=== PATIENT | female | born 1950 | race Caucasian/White ===

== ENCOUNTER 2023-04-20 12:14 | Emergency (ER) | payer OTHER, SELFPAY ==
[2023-04-20] VITALS (14 sets, daily range): BP systolic 101–144; BP diastolic 55–65; PULSE 63–72; RESP 18–28; O2SAT 95–100; BMI 26.9
--- NOTE | 2023-04-20 12:26 | DI.RAD.S_ITS ---
PROCEDURE: XR CHEST 1V INDICATIONS: syncope TECHNIQUE: One view of the chest was acquired. COMPARISON: None. FINDINGS: Surgical changes and devices: None. Lungs and pleura: Lungs are clear. No pleural effusions or pneumothorax. Mediastinum: Mediastinal contours appear normal. Heart size is normal. Bones and chest wall: No suspicious bony lesions. Overlying soft tissues appear unremarkable. IMPRESSION: No acute cardiopulmonary process. Dictated by: Syd Tello M.D. on 04/20/2023 at 13:28 Approved by: Syd Tello M.D. on 04/20/2023 at 13:28
[2023-04-20 12:45] LABS: Add Manual Diff / Slide Review NO; Basophils Absolute Auto 100 /uL (0-100); Basophils Percent Auto 0.8 % (0-2); Eosinophils Absolute Auto 100 /uL (0-450); Eosinophils Percent Auto 2.2 % (2-4); Hematocrit 43.2 % (36-46); Hemoglobin 14.8 g/dL (12.0-16.0); Lymphocytes Absolute Auto 2300 /uL (1100-4500); Lymphocytes Percent Auto 36.1 % (25-40); Mean Corpuscular HGB Conc 34.3 % (30-36); Mean Corpuscular Hemoglobin 31.2 PG (26-34); Mean Corpuscular Volume 90.8 fL (80-100); Monocytes Absolute Auto 600 /uL (0-900); Monocytes Percent Auto 8.9 % (3-14); Neutrophils Absolute Auto 3400 /uL (1500-7000); Platelet Count 216 X10^3/uL (150-400); Red Blood Cell Count 4.75 X10^6/uL (4.0-5.2); Red Cell Distribution Width 13.2 % (11.6-14.8); White Blood Cell Count 6.5 X10^3/uL (4.5-11.0)
[2023-04-20 12:46] LABS: Lactate (Lactic Acid) 1.2 mmol/L (0.7-2.1)
[2023-04-20 12:47] LABS: Alanine Aminotransferase 17 IU/L (<35); Albumin Globulin Ratio 1.3 (1.0-2.8); Alkaline Phosphatase 95 U/L (38-126); Aspartate Aminotransferase 34 IU/L (14-36); BUN Creatinine Ratio 26.7 (6-22); Blood Urea Nitrogen 20 mg/dL (7-17); Calcium 9.3 mg/dL (8.4-10.2); Carbon Dioxide 25 mmol/L (22-32); Chloride 106 mmol/L (98-107); Creatine Kinase 40 U/L (30-135); Estimated Glomerular Filt Rate > 60 mL/min (>60); Globulin 3.2 g/dL (1.7-4.1); Glucose 103 mg/dL (80-110); HEMOLYSIS 20 (0-50); Lipase 108 U/L (23-300); Potassium 3.9 mmol/L (3.4-5.1); Sodium 139 mmol/L (137-145); Total Protein 7.2 g/dL (6.3-8.2)
[2023-04-20] MEDS: SODIUM CHLORIDE 0.9% 1,000 ML 1000 ML IV (12:56)
[2023-04-20 12:58] LABS: Troponin I < 0.012 ng/mL (0.01-0.034)
[2023-04-20 13:03] LABS: Procalcitonin 0.04 ng/mL (<0.5)
--- NOTE | 2023-04-20 14:43 | ED.SYNCOPE ---
HPI - Syncope General Chief Complaint: Syncope Stated Complaint: syncope Time Seen by Provider: 04/20/23 12:26 Source: patient and EMS Mode of arrival: EMS Limitations: no limitations History of Present Illness HPI narrative: Patient 72-year-old female history of hypothyroid presenting today with a syncopal episode. She reports that she is visiting from [place] she flew 3 days ago. She was sitting out on the front porch with friends in the sunshine eating breakfast. It only been out for about 30 minutes she would felt herself getting warm she went inside to change her pants. She started having some abdominal discomfort some cramping. She felt like she would have a bowel movement which she did and then. She back outside when then she had a brief episode of syncope. Friend reports that it was less than a minute there is no shaking foaming at the mouth rolling of the eyes. She woke up fairly quickly without any significant confusion. She did throw up twice afterwards. No further nausea. EMS reported some slight hypotension which has improved with IV fluids. She reports that she has multiple food sensitivities she tries to be very careful. She denies any fever chills she reports that she was feeling fine yesterday. She is no chest pain palpitations or shortness of breath Related Data Previous Rx's Medication Instructions Recorded ondansetron 4 mg disintegrating 4 mg PO Q8H PRN nausea and 04/20/23 tablet vomiting #10 tabs Allergies Allergy/AdvReac Type Severity Reaction Status Date / Time amoxicillin AdvReac Headache Verified 04/20/23 12:28 Review of Systems Review of Systems ROS Unobtainable: All systems reviewed & are unremarkable except as noted in HPI and below Patient History Social History Smoking Status: Former smoker Smoking Status: Former smoker Substance Use Type: does not use Exam Initial Vital Signs Initial Vital Signs: Vital Signs Pulse Rate 64 04/20/23 12:18 Pulse Oximetry 99 04/20/23 12:18 GENERAL: Alert very pleasant 72-year-old female HEENT: Head atraumatic,EOMI, pupils reactive, face symmetric, moist mucous membranes CARDIOVASCULAR: Regular rate and rhythm without murmurs, rubs or gallops. RESPIRATORY: Breath sounds equal bilaterally, no wheezes rales or rhonchi. ABDOMEN: Soft, nontender. Normoactive bowel sounds all 4 quadrants. No guarding or rebound. No pulsatile masses no localization of pain EXTREMITIES: Normal range of motion, no clubbing or edema. Neurovascularly intact NEUROLOGICAL: Alert and oriented x4.Normal gait and speech. Audio Visual Facilities Engineer strength equal bilaterally SKIN: Warm, dry, no laceration, no petechiae, no rashes or lesions. Course Orders Ordered: ED Orders 04/20/23 12:26 XR chest 1V Stat 04/20/23 12:28 EKG-12 Lead Stat 04/20/23 12:34 Complete Blood Count AUTO DIFF Stat Comprehensive Metabolic Panel Stat Lactate (Lactic Acid) Stat Lipase Stat Procalcitonin Stat Troponin & CK Cardiac Panel Stat Discontinued Medications Sodium Chloride (Normal Saline 0.9%) 1,000 mls @ 1,000 mls/hr IV CONT JEFFERSON Last Infusion: 04/20/23 14:55 Dose: 0 mls/hr Documented By: Admin: 04/20/23 12:56 Dose: 1,000 mls/hr Documented By: RB Vital Signs Vital signs: Vital Signs - 8 hr 04/20/23 12:22 04/20/23 12:18 04/20/23 12:19 Pulse Rate 67 64 64 Respiratory Rate 20 Blood Pressure 128/59 L Pulse Oximetry 100 99 100 Oxygen Delivery Method Room Air 04/20/23 12:19 04/20/23 12:30 04/20/23 12:31 Pulse Rate 64 Respiratory Rate 28 H Blood Pressure 128/59 L 130/63 Pulse Oximetry 100 Oxygen Delivery Method 04/20/23 12:31 04/20/23 12:45 04/20/23 12:45 Pulse Rate 64 63 Respiratory Rate 26 H 21 Blood Pressure 111/58 L Pulse Oximetry 100 100 Oxygen Delivery Method 04/20/23 13:00 04/20/23 13:00 04/20/23 13:15 Pulse Rate 64 66 Respiratory Rate 22 22 Blood Pressure 107/55 L Pulse Oximetry 100 100 Oxygen Delivery Method 04/20/23 13:15 04/20/23 13:30 04/20/23 13:31 Pulse Rate 72 70 Respiratory Rate 22 24 Blood Pressure 101/59 L Pulse Oximetry 100 95 Oxygen Delivery Method 04/20/23 13:31 04/20/23 13:46 04/20/23 13:46 Pulse Rate 68 Respiratory Rate 21 Blood Pressure 144/65 H 141/60 H Pulse Oximetry 100 Oxygen Delivery Method 04/20/23 14:00 04/20/23 14:00 04/20/23 14:16 Pulse Rate 69 68 Respiratory Rate 20 21 Blood Pressure 134/63 Pulse Oximetry 99 100 Oxygen Delivery Method 04/20/23 14:16 04/20/23 14:30 04/20/23 14:30 Pulse Rate 67 Respiratory Rate 18 Blood Pressure 124/65 131/59 L Pulse Oximetry 99 Oxygen Delivery Method Room Air MDM - Syncope Lab Data 04/20/23 12:34 04/20/23 12:34 Labs: Lab Results 04/20/23 04/20/23 04/20/23 Range/Units 12:34 12:34 12:34 WBC 6.5 (4.5-11.0) X10^3/uL RBC 4.75 (4.0-5.2) X10^6/uL Hgb 14.8 (12.0-16.0) g/dL Hct 43.2 (36-46) % MCV 90.8 (80-100) fL MCH 31.2 (26-34) PG MCHC 34.3 (30-36) % RDW 13.2 (11.6-14.8) % Plt Count 216 (150-400) X10^3/uL Neut % (Auto) 52.0 (50-75) % Lymph % (Auto) 36.1 (25-40) % [place] % (Auto) 8.9 (3-14) % Eos % (Auto) 2.2 (2-4) % Baso % (Auto) 0.8 (0-2) % Neut # (Auto) 3400 (9702-3645) /uL Lymph # (Auto) 2300 (1988-8146) /uL [place] # (Auto) 600 (0-900) /uL Eos # (Auto) 100 (0-450) /uL Baso # (Auto) 100 (0-100) /uL Sodium 139 (137-145) mmol/L Potassium 3.9 (3.4-5.1) mmol/L Chloride 106 (98-107) mmol/L Carbon Dioxide 25 (22-32) mmol/L BUN 20 H (7-17) mg/dL Creatinine 0.75 (0.52-1.04) mg/dL Estimated GFR > 60 (>60) mL/min BUN/Creatinine Ratio 26.7 H (6-22) Glucose 103 (80-110) mg/dL Lactate 1.2 (0.7-2.1) mmol/L Calcium 9.3 (8.4-10.2) mg/dL Total Bilirubin 1.0 (0.2-1.3) mg/dL AST 34 (14-36) IU/L ALT 17 (<35) IU/L Alkaline Phosphatase 95 (38-126) U/L Total Creatine Kinase 40 (30-135) U/L Troponin I < 0.012 (0.01-0.034) ng/mL Total Protein 7.2 (6.3-8.2) g/dL Albumin 4.0 (3.5-5.0) g/dL Globulin 3.2 (1.7-4.1) g/dL Albumin/Globulin Ratio 1.3 (1.0-2.8) Lipase 108 (23-300) U/L Procalcitonin 0.04 (<0.5) ng/mL Point of Care Testing Glucose POC 100 Urine Dip Bedside Urine Glucose Negative Bedside Urine Bilirubin - Negative Bedside Urine Ketone ++ 40 Urine Specific [place] 1.005 Bedside Urine Occult Blood - Negative Bedside Urine pH 8.0 Bedside Urine Protein - Negative Bedside Urine Urobilinogen - Negative Bedside Urine Nitrite - Negative Bedside Urine Leukocytes +/- 15 Esterase Imaging Data Chest x-ray: Radiologist's Impression: PROCEDURE: XR CHEST 1V INDICATIONS: weakness TECHNIQUE: One view of the chest was acquired. COMPARISON: [facility], , XR CHEST 1V, 04/10/2023, 9:08. [facility], , XR CHEST 1V, 10/05/2021, 9:35. FINDINGS: Surgical changes and devices: None. Lungs and pleura: Lungs are clear. No pleural effusions or pneumothorax. Mediastinum: Mediastinal contours appear normal. Heart size is normal. Bones and chest wall: No suspicious bony lesions. Overlying soft tissues appear unremarkable. IMPRESSION: No acute cardiopulmonary process. Dictated by: Syd Tello M.D. on 04/20/2023 at 12:02 ECG Data Interpretation: Sinus rhythm rate 64 [place] interval 152 QRS [address] changes no T-wave inversion MDM Narrative Medical decision making narrative: Patient is 72-year-old female presents today with a syncopal episode. She was out in the sun for a brief period of time it is warm but not excessively warm. She was eating had some cramping and passed out for about a minute. Sounds as though she would a vasovagal reaction. She is not on antiplatelet or anticoagulation medication. She was having abdominal cramping blood blood pressure and creeping have improved I have a very low suspicion for a ruptured a abdominal aortic aneurysm. She is not having any chest pain palpitations shortness of breath low suspicion for pulmonary embolism even though she just flew. She thinks that she maybe had something that she was not supposed to due to her multiple food and sensitivities. She is feeling much better after IV fluids. Blood work has been reviewed. No clinical significant abnormalities no electrolyte abnormalities no anemia leukocytosis or other symptoms no evidence of UTI. She went to the restroom here. We talked about doing a CT however she is declining at this time. She is ambulatory and feeling better. Talked about Zofran in case if it is a gastroenteritis. She is hesitant but would like a prescription. Discharge Plan Departure Patient Disposition: Home Clinical Impression: Vasovagal syncope Instructions: DI for Syncope in Adults (Fainting) Activity Restrictions/Additional Instructions: *You have been diagnosed with vasovagal reaction *What to do: Increase fluid intake as tolerated. Possible stomach bug. We talked about doing a CT today however you wanted to hold off which I feel is appropriate. However if symptoms worsen or pass out again you must return to nearest emergency department. *Continue to take medications as directed Zofran 4 mg every 8 hours if needed for nausea or vomiting *Follow up with your primary care provider in 2-3 days or call [phone] *Return to ER if you should have recurrent episode of passing out abdominal pain persistent vomiting or any new, worsening or concerning symptoms Prescriptions: New ondansetron 4 mg tablet,disintegrating 4 mg PO Q8H PRN (Reason: nausea and vomiting) Qty: 10 0RF Referrals: Miscellaneous,Doctor, [Primary Care Provider] - Stand Alone Forms: Patient Portal/API
== END 2023-04-20 15:13 | disposition home or self-care (01) ==
PROVIDERS: Emergency Provider Emergency Medicine
DX: R55 Syncope and collapse (principal)
CPT/HCPCS: 36415; 71045; 80053; 81003; 82550; 83605; 83690; 84145; 84484; 85025; 93005; 99284